=== PATIENT | male | born 1970 | race African-American/Black ===

== ENCOUNTER 2018-10-28 16:00 | Inpatient (IN) | payer BC ==
[~2018-10-28] VITALS: Ht 175.3 cm; Wt 95.4 kg
[2018-10-28] MEDS ORDERED: SODIUM CHLORIDE 0.9% 1,000 ML IV ONE ×4 (17:34→20:26)
[2018-10-28 17:42] LABS: CLARITY URINE CLEAR (CLEAR); COLOR URINE YELLOW (YELLOW); KETONES URINE TRACE (NEGATIVE); LEUKOCYTE ESTERASE URINE NEGATIVE (NEGATIVE); NITRITE URINE NEGATIVE (NEGATIVE); OCCULT BLOOD URINE NEGATIVE (NEGATIVE); PH URINE 5.5 (4.5-8.0); PROTEIN URINE NEGATIVE (NEGATIVE); SPECIFIC GRAVITY URINE 1.036 (1.005-1.030); UROBILINOGEN URINE 0.2 E.U./dL (0.2-1.0)
[2018-10-28] MEDS ORDERED: INSULIN REGULAR (HUMULIN R) UD 100 UNITS/ML SYR SUBCUT ONE ×2 (17:45→20:30)
[2018-10-28] MEDS ORDERED: INSULIN REGULAR (HUMULIN R) 300UNITS/3ML SUBCUT ONE (18:45)
[2018-10-28 19:13] LABS: BASOPHILS % 1.2 % (0.0-2.0); EOSINOPHILS % 1.7 % (0.0-5.0); HEMATOCRIT. 40.6 % (42.0-52.0); HEMOGLOBIN. 14.2 g/dL (14.0-18.0); MEAN CORPUSCULAR HEMOGLOBIN 30.5 pg (28.0-32.0); MEAN CORPUSCULAR VOLUME 87.3 fL (80.0-94.0); MEAN PLATELET VOLUME 10.5 fl (7.4-10.4); MONOCYTES % 7.2 % (2.0-8.0); NEUTROPHILS % 51.9 % (40.0-76.0); PLATELET 242 x1000/uL (130-400); RED BLOOD CELL COUNT 4.65 mill/uL (4.7-6.1); RED CELL DISTRIBUTION WIDTH 13.1 % (11.6-14.6)
[2018-10-28 19:21] LABS: INR 0.9; PARTIAL THROMBOPLASTIN TIME 24.6 sec (23.4-31.0); PROTHROMBIN TIME 9.6 sec (9.6-11.0)
[2018-10-28 19:25] LABS: CHLORIDE 103 mEq/L (98-107)
[2018-10-28 19:32] LABS: BETA HYDROXYBUTYRATE 1.1 mMol/L (0.0-0.3)
[2018-10-28] MEDS ORDERED: INSULIN REGULAR (HUMULIN R) 300UNITS/3ML SUBCUT SCH (22:00)
[2018-10-28] MEDS ORDERED: ACETAMINOPHEN 325MG TABLET PO PRN (23:45)
[2018-10-28] MEDS ORDERED: MAGNESIUM/ALUMINUM HYDROXIDE/SIMETHICONE 30ML UDC PO PRN (23:45)
[2018-10-28] MEDS ORDERED: DEXTROSE 50% WATER 50ML SYRINGE IV PRN (23:45)
[2018-10-28] MEDS ORDERED: CLONIDINE 0.1MG TABLET PO PRN (23:45)
[2018-10-28] MEDS ORDERED: DIPHENHYDRAMINE 50MG/ML VIAL IV PRN (23:45)
[2018-10-28] MEDS ORDERED: ONDANSETRON HCL 4MG/2ML INJ IV PRN (23:45)
[2018-10-28 23:58] VITALS: BP 144/99
[2018-10-29] MEDS ORDERED: AMLO10TA80 PO (01:35)
[2018-10-29] MEDS: SODIUM CHLORIDE 0.9% 1,000 ML IV SCH ×2 (02:54→12:51)
[2018-10-29 04:00] VITALS: BP 136/86
[2018-10-29] MEDS: BLOOD SUGAR DIAGNOSTIC STRIP TEST SCH ×4 (06:28→20:52)
[2018-10-29] MEDS: INSULIN LISPRO 100 UNITS/ML SUBCUT SCH ×4 (08:27→21:40)
[2018-10-29] MEDS: AMLODIPINE 10MG TABLET PO SCH (08:28)
[2018-10-29 12:00] VITALS: BP 141/90
[2018-10-29 16:00] VITALS: BP 121/76
[2018-10-29] MEDS: METFORMIN HCL 500MG TABLET PO SCH (18:03)
[2018-10-29 20:00] VITALS: BP 135/82
[2018-10-29] MEDS ORDERED: INSULIN GLARGINE UD 100 UNITS/ML SYR SUBCUT SCH ×2 (22:00)
[2018-10-30] VITALS: BP 119/73
[2018-10-30 04:00] VITALS: BP 130/79
[2018-10-30] MEDS: BLOOD SUGAR DIAGNOSTIC STRIP TEST SCH ×2 (06:45→12:20)
[2018-10-30 08:00] VITALS: BP 134/93
[2018-10-30] MEDS: INSULIN LISPRO 100 UNITS/ML SUBCUT SCH ×2 (08:29→13:06)
[2018-10-30] MEDS: METFORMIN HCL 500MG TABLET PO SCH (08:36)
[2018-10-30] MEDS: AMLODIPINE 10MG TABLET PO SCH (08:36)
[2018-10-30 12:00] VITALS: BP 146/91
[2018-10-30 14:15] VITALS: BP 146/91
== END 2018-10-30 15:19 | disposition home or self-care (01) | DRG 638 ==
LOC: ER 16:13 → EDBEDREQTM 21:00 → EDBEDREQ 21:00 → ENRESERV 22:12 → 7WST 10-29 00:12 → 6EST 10-29 17:15
PROVIDERS: ADMIT Internal Medicine; ATTEND Internal Medicine
DX: E11.00 Type 2 diabetes mellitus with hyperosmolarity without nonketotic hyperglycemic-hyperosmolar coma (NKHHC) (principal); E44.1 Mild protein-calorie malnutrition; I10 Essential (primary) hypertension; Z83.3 Family history of diabetes mellitus
CPT/HCPCS: 36415; 71045; 82010; 82962; 83036; 83880; 84484; 93005; 96360; 96361; 96372; 99285; J1815; J7030

== ENCOUNTER 2023-02-10 12:03 | Emergency (ER) | payer BC ==
[~2023-02-10] VITALS: Ht 177.8 cm; Wt 105.0 kg
[~2023-02-10 12:03] MED LIST: AMLO10TA80 PO
[2023-02-10 12:05] VITALS: O2SAT 99
[2023-02-10] MEDS ORDERED: SODIUM CHLORIDE 0.9% 1,000 ML IV ONE (13:15)
[2023-02-10 13:47] LABS: BASOPHILS % 1.1 % (0.0-2.0); EOSINOPHILS % 2.5 % (0.0-5.0); HEMATOCRIT. 42.2 % (42.0-52.0); HEMOGLOBIN. 14.5 g/dL (14.0-18.0); LYMPHOCYTES % 45.5 % (20.0-50.0); MEAN CORPUSCULAR HEMOGLOBIN 29.4 pg (28.0-32.0); MEAN CORPUSCULAR HGB CONC 34.4 g/dL (31.0-37.0); MEAN CORPUSCULAR VOLUME 85.4 fL (80.0-94.0); MEAN PLATELET VOLUME 10.2 fl (7.4-10.4); MONOCYTES % 7.9 % (2.0-8.0); PLATELET 220 x1000/uL (130-400); RED BLOOD CELL COUNT 4.94 mill/uL (4.7-6.1); RED CELL DISTRIBUTION WIDTH 12.9 % (11.6-14.6); WHITE BLOOD COUNT 6.1 x1000/uL (4.5-11.0)
[2023-02-10 14:00] LABS: CHLORIDE 105 mEq/L (98-107); INDEX HEMOLYSI 4 (1-3); INDEX ICTERIC 1 (1-4); INDEX LIPEMIC 1 (1-3); INR 0.9; PROTHROMBIN TIME 9.9 sec (9.6-11.0); SODIUM 135 mEq/L (136-145)
[2023-02-10 14:02] LABS: POTASSIUM 3.9 mEq/L (3.5-5.1)
[2023-02-10 14:10] LABS: ALANINE AMINOTRANSFERASE 36 IU/L (13-61); ALBUMIN 3.8 g/dL (3.4-5.0); ASPARTATE AMINOTRANSFERASE 27 IU/L (15-37); BILIRUBIN TOTAL 0.6 mg/dL (0.1-1.0); CARBON DIOXIDE 21 mEq/L (21-32); CREATININE 0.8 mg/dL (0.6-1.3); GLUCOSE 359 mg/dL (70-105); PROTEIN TOTAL 7.9 g/dL (6.0-8.3); TROPONIN I HIGH SENSITIVITY 5 ng/L (<78); UREA NITROGEN BLOOD 19 mg/dL (7-21)
[2023-02-10] MEDS ORDERED: INSULIN REGULAR (HUMULIN R) 300UNITS/3ML VIAL SUBCUT ONE (15:45)
[2023-02-10 15:55] VITALS: BP 152/88; PULSE 79; RESP 20; TEMP 98.3
== END 2023-02-10 16:29 | disposition home or self-care (01) ==
LOC: ER 12:03
DX: I16.0 Hypertensive urgency (principal); E11.9 Type 2 diabetes mellitus without complications; E78.00 Pure hypercholesterolemia, unspecified
CPT/HCPCS: 80053; 82962; 83690; 85025; 85610; 84484; 36415; 71045; 70450; 93005; 96360; 96372; 99285; J1815; J7030; Z7610 ×2

== ENCOUNTER 2024-09-25 17:40 | Emergency (ER) | payer BC ==
[~2024-09-25] VITALS: Ht 175.3 cm; Wt 87.0 kg
[~2024-09-25 17:40] MED LIST changes: +INSU100I28 SQ; +LIP40 PO
[2024-09-25 17:43] VITALS: BP 148/81; PULSE 99; RESP 16; TEMP 36.8; O2SAT 95
[2024-09-25] MEDS ORDERED: DEXT1TAB MT (18:42)
== END 2024-09-25 18:48 | disposition home or self-care (01) ==
LOC: ER 17:40
DX: R05.9 Cough, unspecified (principal); E11.9 Type 2 diabetes mellitus without complications; I10 Essential (primary) hypertension; F41.9 Anxiety disorder, unspecified; Z79.4 Long term (current) use of insulin; Z86.73 Personal history of transient ischemic attack (TIA), and cerebral infarction without residual deficits; Z79.899 Other long term (current) drug therapy
CPT/HCPCS: 71045; 99283